=== PATIENT | male | born 1930 | race Caucasian/White ===

== ENCOUNTER 2018-04-18 10:35 | Day surgery (SDC) | payer OTHER, MEDICARE ==
[~2018-04-18] VITALS: Ht 188 cm; Wt 81.6 kg
[~2018-04-18 10:35] MED LIST: ASPI-630 PO; BUPIVACAINE-EPI 0.5%-1:200000 50 ML VIAL. ONE; CHLORHEXIDINE 0.12% 15 ML MOUTHWASH. ONE; CRESTOR20 MG PO; GELATIN MUCOSAL POWDER. ONE; HYDR10TA PO; HYDROmorphone 2 MG/ML VIAL IV PRN; IV RINGERS,LACTATED 1000ML 1,000 ML IV SCH; LEVO112T4 PO; LIDOCAINE 1% PF 2 ML VIAL. ID PRN; METO-239 PO; MORPHINE SULFATE 2 MG/ML VIAL. IV PRN; OMEP20TA8 PO; ONDANSETRON PF 4 MG/2 ML VIAL. IV PRN; PROCHLORPERAZINE 10 MG/2 ML VIAL. IV PRN; TEST200V3 IM; WARF3TAB50 PO; WARF4TAB64 PO; fentaNYL PF VIAL 100 MCG/2 ML VIAL IV PRN
[2018-04-18 11:24] LABS: BASO % 0 % (0-3); EOS % 0 % (0-3); HEMATOCRIT 47.6 % (39.0-53.0); HEMOGLOBIN 16.5 g/dL (13.0-17.5); LYMPH # 0.8 x10^3/uL (1.0-4.8); LYMPH % 16 % (24-48); MEAN CORPUSCULAR HEMOGLOBIN 32 pg (25-35); MEAN CORPUSCULAR HGB CONC 35 g/dL (31-37); MEAN CORPUSCULAR VOLUME 91 fL (79-100); MONO # 0.7 x10^3/uL (0.0-1.1); MONO % 12 % (0-9); NEUT # 3.9 x10^3uL (1.8-7.7); NEUT % 72 % (31-73); PLATELET COUNT 142 x10^3/uL (140-400); RED BLOOD COUNT 5.22 x10^6/uL (4.30-5.70); RED CELL DISTRIBUTION WIDTH 16.3 % (11.5-14.5); WHITE BLOOD COUNT 5.4 x10^3/uL (4.0-11.0)
[2018-04-18] MEDS ORDERED: SUCCINYLCHOLINE 200 MG/10 ML VIAL. ONE (11:33)
[2018-04-18] MEDS ORDERED: fentaNYL PF VIAL 100 MCG/2 ML VIAL ONE (11:33)
[2018-04-18] MEDS ORDERED: HYDROCORTISONE SOD SUCC/PF 100 MG/2 ML VIAL. ONE ×2 (11:37)
[2018-04-18] MEDS ORDERED: PROPOFOL 20 ML IV ONE (11:38)
[2018-04-18] MEDS ORDERED: LIDOCAINE 2% PF Vial for OR 5 ML VIAL. ONE (11:38)
[2018-04-18] MEDS ORDERED: ONDANSETRON PF 4 MG/2 ML VIAL. ONE (11:38)
[2018-04-18] MEDS ORDERED: ePHEDrine PF IN SALINE 50 MG/5 ML DISP.SYRIN IV ONE (12:02)
[2018-04-18] MEDS ORDERED: GELATIN SPONGE SIZE 100. ONE (12:21)
--- NOTE | 2018-04-18 12:56 | PDOC4 ---
OPERATIVE NOTE Date: Date: Apr 18, 2018 Pre-Op Diagnosis: CAD DVT HTN Caries non restorable # 19 & 24 Post-Op Diagnosis: same Procedure Performed: surgical extraction of # 29, & 24 Surgeon: delgado Anesthesia Type: ines Blood Loss: 10ml Specimans Obtained: teeth disposed of in OR Findings: see dictation non restorable # 24, & 19 Complications: none Operative Note: see dictation KATHERINE PARNELL DMD Apr 18, 2018 12:55
--- NOTE | 2018-04-18 13:02 | DISCH ---
DISCHARGE INSTRUCTIONS Condition on Discharge Condition on Discharge: Stable Activity After Discharge Activity Instructions for Disc: Activity as tolerated Driving Instructions after Dis: Do not drive today Weight Bearing Status after Di: No restrictions Diet after Discharge Diet after Discharge: Level II Dysph, Ground (no hard or sharp foods for 2 weeks) Wound Incision Care Wound/Incision Care: Ice to area for comfort Wound Care Equipment: Dressings (Bite on gauze for 60 min as needed for bleeding) Contacting the [facility]ow after DC Call your doctor for: Concerns you may have Follow-Up Follow up with: Dr. Parnell [phone] Follow Up With: Bite on gauze for 60 min as needed for bleeding Warfarin Follow-Up Warfarin Follow UP: resume warfarin as usual KATHERINE PARNELL DMD Apr 18, 2018 13:02
[2018-04-18 13:30] VITALS: BP 132/63
--- NOTE | 2018-04-18 17:45 | OP ---
DATE OF SURGERY: 04/18/2018 OPERATING SERVICE: crepe box tender. ATTENDING PHYSICIAN: Abraham Parnell DMD. 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 POSTOPERATIVE DIAGNOSES: Caries to nonrestorable teeth #19 and 24, history of deep vein thrombosis, aortic stenosis and coronary artery disease, status post coronary artery bypass graft with hypertension and unstable heart disease. PROCEDURES PERFORMED: Extraction #19 and 24. BRIEF HISTORY: The patient was referred to our office by the DE for removal of the aforementioned teeth #19 and 24. These teeth were deemed caries, nonrestorable. Given his multiple medical comorbidities, history and physical was performed in our clinic and the setting of care was determined that would be best provided in the OR. The patient was amenable about this plan and surgery and permit were obtained and surgery was scheduled. ESTIMATED BLOOD LOSS: Approximately 10 mL. DRAINS PLACED: None. SPECIMENS: None were sent. Teeth were disposed in the OR. COMPLICATIONS: None noted at time of surgery. DESCRIPTION OF PROCEDURE: After the history and physical was completed and updated in the preoperative holding area, the patient was transported by the Anesthesia Service to the operating suite, placed in the supine position. All pads were checked. A timeout was initiated and performed. The patient was then intubated by the Anesthesia team secured without complication. A moistened throat pack was placed. Local anesthesia was administered approximately 12 mL of 0.5% Marcaine, 1:200,000 epinephrine in the proposed surgical sites. After bite block was placed and #15 was employed to create a buccal flap at sites #19 and 24. A full thickness mucoperiosteal flap was reflected buccally at both sites. Teeth were luxated, elevated and extracted. Handpiece was employed at site #19. Postoperative alveoloplasty was performed to remove bony undercuts and sharp edges with rongeurs and a bone file and curettage was completed with copious normal sterile saline. Gelfoam was placed in extraction sites and oversewn with 3-0 chromic gut sutures in a running locked fashion and [id number] fashion to assist with hemostasis. The oral cavity was then lavaged and suctioned and the moistened throat pack was removed and an OG was passed and the stomach was decompressed. The patient was then returned to the care of Anesthesia where he was awakened and extubated and transported by the Anesthesia Service to the PACU in stable condition. ABRAHAM PARNELL DMD DR: Jennifer JOB#: [id number] / [id number]
== END 2018-04-18 14:10 | disposition home or self-care (01) ==
LOC: SURG 10:35
PROVIDERS: ATTEND Dentist Oral and Maxillofacial Surgery
DX: K02.9 Dental caries, unspecified (principal); I25.10 Atherosclerotic heart disease of native coronary artery without angina pectoris; I35.0 Nonrheumatic aortic (valve) stenosis; Z95.1 Presence of aortocoronary bypass graft; I11.9 Hypertensive heart disease without heart failure; Z86.718 Personal history of other venous thrombosis and embolism; K21.9 Gastro-esophageal reflux disease without esophagitis; E78.5 Hyperlipidemia, unspecified; E23.0 Hypopituitarism; Z79.82 Long term (current) use of aspirin; Z79.899 Other long term (current) drug therapy; Z88.1 Allergy status to other antibiotic agents; Z87.891 Personal history of nicotine dependence
CPT/HCPCS: 36415; 41874; 41899; 85025; 85610; 85730; A7015; J0330; J0690; J1720; J2001; J2405; J2704; J3010; J7120